=== PATIENT | female | born 1965 | race Caucasian/White ===

== ENCOUNTER 2021-12-31 14:13 | Emergency (ER) | payer OTHER ==
[~2021-12-31] VITALS: Ht 149.9 cm; Wt 61.2 kg
[2021-12-31 14:23] VITALS: BP 117/74
[2021-12-31] MEDS ORDERED: GABAPENTIN 100 MG CAPSULE PO ONE (15:00)
[2021-12-31] MEDS ORDERED: GABAPENTIN 100 MG CAPSULE ONE (15:06)
[2021-12-31] MEDS ORDERED: GABAPENTIN 300 MG CAPSULE ONE (15:07)
[2021-12-31] MEDS ORDERED: LISI20TA30 PO ×2 (15:09→15:56)
[2021-12-31] MEDS ORDERED: GABA800T11 PO ×2 (15:09→15:56)
--- NOTE | 2021-12-31 15:17 | NUR ---
BS 433, DR CASTRO AWARE
[2021-12-31] MEDS ORDERED: INSULIN REGULAR, HUMAN 100 UNIT/ML 10 ML VIAL ONE (15:22)
[2021-12-31] MEDS ORDERED: INSULIN REGULAR, HUMAN 100 UNIT/ML 10 ML VIAL SQ ONE (15:30)
[2021-12-31] MEDS ORDERED: INSU3INS5 SQ (15:56)
--- NOTE | 2021-12-31 16:38 | NUR ---
BS 345, DR CASTRO AWARE
--- NOTE | 2021-12-31 16:41 | NUR ---
Patient discharged to home in stable condition. Written and verbal after care instructions given. Patient verbalizes understanding of instruction.
== END 2021-12-31 16:43 | disposition home or self-care (01) ==
LOC: ER 14:15
DX: E11.40 Type 2 diabetes mellitus with diabetic neuropathy, unspecified (principal); E11.65 Type 2 diabetes mellitus with hyperglycemia; H00.015 Hordeolum externum left lower eyelid; Z76.0 Encounter for issue of repeat prescription; Z88.8 Allergy status to other drugs, medicaments and biological substances; Z79.899 Other long term (current) drug therapy
CPT/HCPCS: 82962 ×2; 96372; 99283; J1815

== ENCOUNTER 2022-02-04 17:39 | Emergency (ER) | payer OTHER ==
[~2022-02-04] VITALS: Ht 149.9 cm; Wt 59.0 kg
[~2022-02-04 17:39] MED LIST: GABA800T11 PO; INSU3INS5 SQ; LISI20TA30 PO
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
--- NOTE | 2022-02-04 18:40 | NUR ---
DR CASTRO AT BEDSIDE
[2022-02-04] MEDS ORDERED: LIDOCAINE VISCOUS 2% UD 15 ML UDC ONE ×2 (19:03→22:26)
[2022-02-04] MEDS ORDERED: HYDROCODONE/APAP 5/325MG TABLET ONE ×2 (19:03→21:35)
[2022-02-04] MEDS: HYDROCODONE/APAP 5/325MG TABLET PO ONE ×2 (19:06→21:37)
--- NOTE | 2022-02-04 19:07 | NUR ---
[employer] ARCHITECT AT BEDSIDE
--- NOTE | 2022-02-04 19:15 | NUR ---
ENDORSEMENT GIVEN TO YANDEL VALDEZ FOR MAKI
[2022-02-04] MEDS: LIDOCAINE VISCOUS 2% UD 15 ML UDC MM ONE (19:43)
[2022-02-04] MEDS ORDERED: AMOX-430 PO (22:36)
[2022-02-04] MEDS ORDERED: IBUP-1957 PO (22:36)
[2022-02-04] MEDS ORDERED: HYDR-4209 PO (22:36)
--- NOTE | 2022-02-04 23:09 | NUR ---
Patient discharged to home in stable condition. Written and verbal after care instructions given. Patient verbalizes understanding of instruction. PT ambulatory with a steady gait
[2022-02-04 23:18] VITALS: BP 127/71
== END 2022-02-04 23:19 | disposition home or self-care (01) ==
LOC: ER 17:45
DX: S21.102A Unspecified open wound of left front wall of thorax without penetration into thoracic cavity, initial encounter (principal); S09.93XA Unspecified injury of face, initial encounter; E11.9 Type 2 diabetes mellitus without complications; I10 Essential (primary) hypertension; Z88.8 Allergy status to other drugs, medicaments and biological substances; Z79.899 Other long term (current) drug therapy; V00.141A Fall from scooter (nonmotorized), initial encounter; Y93.55 Activity, bike riding; Y92.89 Other specified places as the place of occurrence of the external cause; Y99.8 Other external cause status
CPT/HCPCS: 71100-TC